=== PATIENT | female | born 1970 | race Caucasian/White ===

== ENCOUNTER → 2018-05-14 | Outpatient (CLI) | payer OTHER ==
[~2018-05-14] MED LIST: ADVAIR 250/501 EA INH; AMBIEN10 MG PO; CIPRODEX 0.3%-7.5 ML OT; CLARITIN10 MG PO; COREG25 MG PO; DOXAZOSIN4 MG PO; FLEXERIL10 MG PO; HYDROCHLOROTHIA25 MG PO; MEDROL DOSEPAK4 MG PO; NAPROSYN500 MG PO; PREDNISONE10 MG PO; PRINIVIL20 MG PO; VICODIN ES 7501 TAB PO; ZITHROMAX Z PA250 MG PO
== END | disposition home or self-care (01) ==
LOC: RAD 18:51
DX: R19.00 Intra-abdominal and pelvic swelling, mass and lump, unspecified site (principal)

== ENCOUNTER 2023-04-01 14:19 | Emergency (ER) | payer OTHER ==
[~2023-04-01] VITALS: Ht 167.6 cm; Wt 83.9 kg
[2023-04-01 14:55] LABS: BASO # 0.1 10*3/uL (0.0-0.1); BASO % 0.3 % (0.0-1.0); EOS # 0.7 10*3/uL (0.0-0.4); EOS % 4.8 % (1.0-4.0); HEMATOCRIT 43.5 % (37.0-47.0); LYMPH # 2.5 10*3/uL (1.3-4.4); MEAN CORPUSCULAR HGB CONC 32.6 g/dl (33.0-37.0); MONO # 0.4 10*3/uL (0.1-1.0); MONO % 2.4 % (3.0-9.0); PLATELET COUNT AUTOMATED 280 10*3/uL (130-400); RED BLOOD COUNT 4.44 10*6/uL (4.10-5.10); RED CELL DISTRI WIDTH 12.8 % (0-14.5); WHITE BLOOD COUNT 14.7 10*3/uL (4.8-10.8)
[2023-04-01 15:07] LABS: ACT PARTIAL THROMBO TIME 21.9 SECONDS (20.0-32.1)
[2023-04-01 15:20] LABS: ALKALINE PHOSPHATASE 109 U/L (46-116); BUN 14 mg/dl (9-23); CHLORIDE 107 mmol/L (98-107); LIPASE 39 U/L (12-53); POTASSIUM 3.4 mmol/L (3.4-5.1); SGPT/ALT 16 U/L (10-49); TOTAL PROTEIN 6.9 gm/dL (6.0-8.0)
[2023-04-01 17:33] LABS: BILIRUBIN Negative (Negative); BLOOD Trace-Lysed (Negative); CLARITY Clear (Clear); COLOR Yellow (Yellow); GLUCOSE 3+ (Negative); KETONE Negative (Negative); LEUKO ESTERASE Negative (Negative); NITRITE Negative (Negative); SPECIFIC GRAVITY >= 1.030 (1.001-1.030); UROBILINOGEN 0.2 E.U./dl (0.0-1.0)
[2023-04-01 17:43] LABS: EPITHELIAL CELLS 0-2
== END 2023-04-01 18:25 | disposition short-term general hospital (02) ==
LOC: ED 14:19
PROVIDERS: Emergency Medicine
DX: I77.1 Stricture of artery (principal); T78.40XA Allergy, unspecified, initial encounter; J44.9 Chronic obstructive pulmonary disease, unspecified; Z88.1 Allergy status to other antibiotic agents; Z98.51 Tubal ligation status; Z90.710 Acquired absence of both cervix and uterus; X58.XXXA Exposure to other specified factors, initial encounter

== ENCOUNTER 2024-01-15 17:35 | Emergency (ER) | payer OTHER ==
[~2024-01-15] VITALS: Ht 167.6 cm; Wt 83.9 kg
[2024-01-15] MEDS ORDERED: SODIUM CHLORIDE 0.9% 100 ML BAG IV ONE (18:10)
[2024-01-15] MEDS ORDERED: IOHEXOL 350 MG/ML 100 ML VIAL IV ONE (18:10)
[2024-01-15] MEDS ORDERED: XARE20MG PO (18:10)
[2024-01-15] MEDS ORDERED: PROZAC40 M1 PO (18:10)
[2024-01-15] MEDS ORDERED: JARDIANCE10 MG PO (18:10)
[2024-01-15] MEDS ORDERED: OMEPRAZOLE40 MG PO (18:11)
[2024-01-15] MEDS ORDERED: NEURONTIN300 MG PO (18:12)
[2024-01-15] MEDS ORDERED: VITAMIN D250 MC1 PO (18:12)
[2024-01-15] MEDS ORDERED: METFORMIN HYDR500 MG PO (18:13)
[2024-01-15] MEDS ORDERED: AMLODIPINE BESY10 MG PO (18:13)
[2024-01-15] MEDS ORDERED: ALDACTONE50 M1 PO (18:15)
[2024-01-15 18:17] LABS: BASO # 0.1 10*3/uL (0.0-0.1); BASO % 0.8 % (0.0-1.0); EOS # 0.9 10*3/uL (0.0-0.4); EOS % 12.1 % (1.0-4.0); HEMATOCRIT 41.3 % (37.0-47.0); LYMPH % 28.2 % (27.0-41.0); MEAN CELL VOLUME 96.9 fl (81.0-99.0); MEAN CORPUSCULAR HGB 31.5 pg (27.0-31.0); MEAN CORPUSCULAR HGB CONC 32.4 g/dl (33.0-37.0); MEAN PLATELET VOLUME 9.3 fl (9.6-12.3); MONO # 0.7 10*3/uL (0.1-1.0); MONO % 10.2 % (3.0-9.0); NEUT # 3.5 10*3/uL (2.3-7.9); NEUT % 48.6 % (47.0-73.0); PLATELET COUNT AUTOMATED 209 10*3/uL (130-400); RED BLOOD COUNT 4.26 10*6/uL (4.10-5.10); RED CELL DISTRI WIDTH 12.8 % (0-14.5); WHITE BLOOD COUNT 7.2 10*3/uL (4.8-10.8)
[2024-01-15 18:31] LABS: BUN 14 mg/dl (9-23); CHLORIDE 101 mmol/L (98-107); POTASSIUM 3.7 mmol/L (3.4-5.1)
[2024-01-15] MEDS ORDERED: Acetaminophen/Hydrocodone Bi 3 TAB PACK PO PRN (21:10)
== END 2024-01-15 21:23 | disposition home or self-care (01) ==
LOC: ED 17:35
PROVIDERS: Nurse Practitioner Family
DX: M79.605 Pain in left leg (principal); J44.9 Chronic obstructive pulmonary disease, unspecified; Z88.1 Allergy status to other antibiotic agents; Z88.8 Allergy status to other drugs, medicaments and biological substances; Z98.51 Tubal ligation status; Z90.710 Acquired absence of both cervix and uterus

== ENCOUNTER 2025-01-23 17:26 | Emergency (ER) | payer OTHER ==
[~2025-01-23] VITALS: Wt 61.7 kg
[~2025-01-23 17:26] MED LIST changes: +ALDACTONE50 M1 PO; +AMLODIPINE BESY10 MG PO; +JARDIANCE10 MG PO; +METFORMIN HYDR500 MG PO; +NEURONTIN300 MG PO; +OMEPRAZOLE40 MG PO; +PROZAC40 M1 PO; +VITAMIN D250 MC1 PO; +XARE20MG PO
[2025-01-23 18:06] LABS: BASO % 0.7 % (0.0-1.0); EOS # 0.7 10*3/uL (0.0-0.4); EOS % 13.6 % (1.0-4.0); HEMATOCRIT 38.9 % (37.0-47.0); MEAN CELL VOLUME 105.1 fl (81.0-99.0); MEAN CORPUSCULAR HGB 34.9 pg (27.0-31.0); MEAN CORPUSCULAR HGB CONC 33.2 g/dl (33.0-37.0); MEAN PLATELET VOLUME 9.8 fl (9.6-12.3); MONO # 0.4 10*3/uL (0.1-1.0); MONO % 7.8 % (3.0-9.0); NEUT # 3.1 10*3/uL (2.3-7.9); NEUT % 58.2 % (47.0-73.0); PLATELET COUNT AUTOMATED 109 10*3/uL (130-400); RED CELL DISTRI WIDTH 11.9 % (0-14.5); WHITE BLOOD COUNT 5.4 10*3/uL (4.8-10.8)
[2025-01-23 18:28] LABS: BILIRUBIN Negative (Negative); BLOOD Negative (Negative); CLARITY Clear (Clear); COLOR Yellow (Yellow); GLUCOSE Negative (Negative); KETONE Negative (Negative); LEUKO ESTERASE 1+ (Negative); NITRITE Negative (Negative); SPECIFIC GRAVITY <= 1.005 (1.001-1.030); UROBILINOGEN 0.2 E.U./dl (0.0-1.0)
[2025-01-23 18:31] LABS: ALKALINE PHOSPHATASE 96 U/L (46-116); BUN 6 mg/dl (9-23); CHLORIDE 110 mmol/L (98-107); ETHYL ALCOHOL 175.1 mg/dl (<3); FREE T4 1.03 ng/dl (0.89-1.76); LIPASE 33 U/L (12-53); POTASSIUM 3.3 mmol/L (3.4-5.1); SGPT/ALT 9 U/L (5-49)
[2025-01-23 18:36] LABS: URINE AMPHETAMINES Negative (1000ng/ml); URINE BARBITURATES Negative (200ng/ml); URINE BENZODIAZEPINES Positive (200ng/ml); URINE CANNABINOIDS (THC) Negative (50ng/ml); URINE COCAINE Negative (300ng/ml); URINE METHADONE Negative (300ng/ml); URINE OPIATES Negative (300ng/ml); URINE PHENCYCLIDINE Negative (25ng/ml)
[2025-01-23] MEDS ORDERED: POTASSIUM CHLORIDE 20 MEQ TAB PO ONE (18:40)
[2025-01-23 18:42] LABS: EPITHELIAL CELLS 0-2
[2025-01-24] MEDS ORDERED: ACETAMINOPHEN 325 MG TAB PO ONE (01:30)
== END 2025-01-24 10:11 | disposition home or self-care (01) ==
LOC: ED 17:26
PROVIDERS: Emergency Medicine
DX: F43.21 Adjustment disorder with depressed mood (principal); J44.9 Chronic obstructive pulmonary disease, unspecified; F17.200 Nicotine dependence, unspecified, uncomplicated; Z79.899 Other long term (current) drug therapy